=== PATIENT | female | born 1980 | race Caucasian/White ===

== ENCOUNTER 2017-10-25 19:00 | Emergency (ER) | payer OTHER ==
[~2017-10-25] VITALS: Ht 160 cm; Wt 71.7 kg
[~2017-10-25 19:00] MED LIST: IRON; LASIX PO; PROINH INH; Q-VAR; VITAMIN D; XAN1 PO; [UNRECOGNIZED DRUG - CODE] PO; [UNRECOGNIZED DRUG - OTHER]
[2017-10-25 19:04] VITALS: Ht 160 cm; Wt 71.7 kg
[2017-10-25 23:54] LABS: BASOPHIL % 0.7 % (0-2); PLATELET COUNT 326 x10^3mcL (130-400)
[2017-10-25 23:55] LABS: RED CELL DISTRIBUTION WIDTH 17.9 % (11.5-14.5)
[2017-10-26 00:06] LABS: CALCIUM 8.3 mg/dL (8.5-10.1); CARBON DIOXIDE 26.4 mmol/L (21-32); CHLORIDE SERUM 106 mmol/L (98-107); CREATININE SERUM 0.6 mg/dL (0.6-1.0); GFR1 > 60 mL/min; GLUCOSE SERUM 95 mg/dL (74-106); POTASSIUM SERUM 3.4 mmol/L (3.5-5.1); SODIUM SERUM 140 mmol/L (136-145)
[2017-10-26 00:10] LABS: ALBUMIN 3.7 g/dL (3.4-5.0); ALKALINE PHOSPHATASE 45 U/L (46-116); ALT/SGPT 22 U/L (14-59); AST/SGOT 18 U/L (15-37); BILIRUBIN TOTAL 0.2 mg/dL (0.20-1.00); TOTAL PROTEIN, SERUM 6.8 g/dL (6.4-8.2)
[2017-10-26 00:11] LABS: TOTAL IRON BINDING CAPACITY 438 ug/dL (250-450)
[2017-10-26 00:13] LABS: IRON 12 ug/dL (50-170)
[2017-10-26 03:31] VITALS: BP 121/71
== END 2017-10-26 03:31 | disposition home or self-care (01) ==
LOC: ED 19:00
PROVIDERS: Emergency Medicine
DX: D50.9 Iron deficiency anemia, unspecified (principal); N93.8 Other specified abnormal uterine and vaginal bleeding
CPT/HCPCS: 82962; 83880; J7030; Q0092